=== PATIENT | female | born 1960 | race Caucasian/White ===

== ENCOUNTER 2020-03-27 13:22 | Inpatient (IN) | payer OTHER ==
[2020-03-27] MEDS ORDERED: MAGNESIUM CITRATE 300 ML BOTTLE PO PRN (18:18)
[2020-03-27] MEDS ORDERED: BISMUTH SUBSALICYLATE 524 MG/30 ML UD PO PRN (18:18)
[2020-03-27] MEDS ORDERED: IBUPROFEN 400 MG TABLET (FP) PO PRN (18:18)
[2020-03-27] MEDS ORDERED: MAG HYDROX/AL HYDROX/SIMETH 30 ML UNIT-DOSE CUP PO PRN (18:18)
[2020-03-27] MEDS ORDERED: MAGNESIUM HYDROX 2400MG/30ML ORAL SUSPENSION 30 ML CUP PO PRN (18:18)
[2020-03-27] MEDS ORDERED: chlordiazePOXIDE HCL 25 MG CAPSULE PO PRN (18:18)
[2020-03-27] MEDS ORDERED: MENTHOL/PHENOL 1 EACH UD MM PRN (18:18)
[2020-03-27] MEDS ORDERED: chlordiazePOXIDE HCL 25 MG CAPSULE PO ONE (18:18)
[2020-03-27] MEDS ORDERED: ONDANSETRON *ODT* 4 MG TABLET SL PRN (18:18)
[2020-03-27] MEDS ORDERED: ACETAMINOPHEN 325 MG TABLET (FP) PO PRN ×2 (18:18)
[2020-03-27] MEDS ORDERED: METHOCARBAMOL 500 MG TABLET PO PRN (18:18)
[2020-03-27] MEDS ORDERED: BENZOCAINE 28 GM HEMORRHOIDAL OINTMENT PR PRN (18:23)
[2020-03-27 19:32] VITALS: BMI 29.6
[2020-03-27] MEDS ORDERED: TOLNAFTATE 1% CREAM 15 GM TUBE TP SCH (22:00)
[2020-03-27] MEDS ORDERED: ARTIFICIAL TEARS (POLYVINYL ALCOHOL) OPTH DROPS OU PRN (22:00)
[2020-03-27] MEDS: THIAMINE HCL 100 MG TABLET (FP) PO SCH (22:33)
[2020-03-27] MEDS: chlordiazePOXIDE HCL 25 MG CAPSULE PO SCH (22:36)
[2020-03-27] MEDS: SIMETHICONE 80 MG TAB.CHEW (FP) PO SCH (22:38)
[2020-03-27] MEDS ORDERED: SUVOREXANT 5 MG TABLET PO ONE (23:00)
[2020-03-28] MEDS: chlordiazePOXIDE HCL 25 MG CAPSULE PO SCH ×2 (05:41→10:20)
[2020-03-28] MEDS: PRENATAL VITAMINS W/ FOLIC ACID TABLET (FP) PO SCH (10:20)
[2020-03-28] MEDS: PANTOPRAZOLE 40 MG TABLET PO SCH (10:20)
[2020-03-28 10:29] LABS: HEMATOCRIT 35.8 % (32.4-45.2); MCH 33.3 pg (25.7-33.7); MCHC 33.5 g/dl (32.0-36.0); MEAN CELL VOLUME 99.4 fl (80-96); MEAN PLT VOLUME 10.2 fl (7.5-11.1); PLATELET COUNT 134 K/MM3 (134-434); RDW 12.6 % (11.6-15.6); WHITE BLOOD COUNT 3.7 K/mm3 (4.0-10.0)
[2020-03-28 10:57] LABS: POTASSIUM 3.5 mmol/L (3.5-5.1)
[2020-03-28 11:00] LABS: CALCIUM 8.8 mg/dL (8.5-10.1)
[2020-03-28 11:01] LABS: ALBUMIN 3.4 g/dl (3.4-5.0)
[2020-03-28 11:04] LABS: CREATININE 0.6 mg/dL (0.55-1.3)
[2020-03-28 11:05] LABS: BILIRUBIN,TOTAL 1.8 mg/dL (0.2-1)
[2020-03-28 11:06] LABS: TOT PROT 6.4 g/dl (6.4-8.2)
[2020-03-28] MEDS: SIMETHICONE 80 MG TAB.CHEW (FP) PO SCH ×2 (14:16→22:08)
[2020-03-28] MEDS ORDERED: LORazepam 2 MG TABLET PO PRN (17:00)
[2020-03-28] MEDS: THIAMINE HCL 100 MG TABLET (FP) PO SCH (22:08)
[2020-03-28] MEDS: LORazepam 1 MG TABLET PO PRN (22:25)
[2020-03-28] MEDS: SUVOREXANT 5 MG TABLET PO PRN (23:21)
[2020-03-29] MEDS ORDERED: chlordiazePOXIDE HCL 25 MG CAPSULE PO SCH (05:00)
[2020-03-29] MEDS: LORazepam 1 MG TABLET PO SCH ×4 (05:33→22:12)
[2020-03-29] MEDS: LORazepam 1 MG TABLET PO PRN (09:18)
[2020-03-29] MEDS: SIMETHICONE 80 MG TAB.CHEW (FP) PO SCH ×2 (10:10→22:12)
[2020-03-29] MEDS: PANTOPRAZOLE 40 MG TABLET PO SCH (10:10)
[2020-03-29] MEDS: PRENATAL VITAMINS W/ FOLIC ACID TABLET (FP) PO SCH (10:10)
[2020-03-29] MEDS: FLUoxetine HCL 10 MG TABLET PO SCH (10:10)
[2020-03-29] MEDS: THIAMINE HCL 100 MG TABLET (FP) PO SCH (22:12)
[2020-03-29] MEDS: SUVOREXANT 5 MG TABLET PO PRN (22:14)
[2020-03-30] MEDS ORDERED: chlordiazePOXIDE HCL 10 MG CAPSULE PO PRN
[2020-03-30] MEDS ORDERED: chlordiazePOXIDE HCL 10 MG CAPSULE PO SCH (05:00)
[2020-03-30] MEDS: LORazepam 0.5 MG TABLET PO SCH ×4 (05:40→22:04)
[2020-03-30] MEDS: PANTOPRAZOLE 40 MG TABLET PO SCH (10:07)
[2020-03-30] MEDS: SIMETHICONE 80 MG TAB.CHEW (FP) PO SCH ×2 (10:07→22:05)
[2020-03-30] MEDS: PRENATAL VITAMINS W/ FOLIC ACID TABLET (FP) PO SCH (10:07)
[2020-03-30] MEDS: FLUoxetine HCL 10 MG TABLET PO SCH (10:07)
[2020-03-30 12:14] LABS: ALBUMIN 3.3 g/dl (3.4-5.0)
[2020-03-30 12:17] LABS: BILIRUBIN,DIRECT 0.4 mg/dL (0.0-0.2)
[2020-03-30 12:19] LABS: BILIRUBIN,TOTAL 0.8 mg/dL (0.2-1); TOT PROT 6.4 g/dl (6.4-8.2)
[2020-03-30] MEDS: THIAMINE HCL 100 MG TABLET (FP) PO SCH (22:05)
[2020-03-30] MEDS: SUVOREXANT 5 MG TABLET PO PRN (22:05)
[2020-03-31] MEDS ORDERED: LORazepam 0.5 MG TABLET PO PRN
[2020-03-31] MEDS ORDERED: LORazepam 0.5 MG TABLET PO ONE (05:00)
[2020-03-31] MEDS ORDERED: chlordiazePOXIDE HCL 10 MG CAPSULE PO SCH (05:00)
[2020-03-31 07:09] VITALS: BP 120/67; PULSE 58; TEMP 97.5
[2020-04-01] MEDS ORDERED: chlordiazePOXIDE HCL 10 MG CAPSULE PO ONE (05:00)
== END 2020-03-31 09:04 | disposition home or self-care (01) | DRG 775 ==
LOC: YASAS 13:22 → Y3N 19:22
PROVIDERS: ADMIT Allergy & Immunology; ATTEND Allergy & Immunology
PROC: HZ2ZZZZ Detoxification Services for Substance Abuse Treatment (ICD-10-PCS; principal; 2020-03-27)
DX: F10.230 Alcohol dependence with withdrawal, uncomplicated (principal); F20.9 Schizophrenia, unspecified; F41.9 Anxiety disorder, unspecified; G47.00 Insomnia, unspecified; E53.8 Deficiency of other specified B group vitamins; K74.60 Unspecified cirrhosis of liver; K21.9 Gastro-esophageal reflux disease without esophagitis; K45.8 Other specified abdominal hernia without obstruction or gangrene; K64.4 Residual hemorrhoidal skin tags; R94.31 Abnormal electrocardiogram [ECG] [EKG]; R94.5 Abnormal results of liver function studies; Z98.84 Bariatric surgery status
CPT/HCPCS: 36415; 80053; 80076; 82962; 85027; 86780; 93005; 93010; C9803; U0003

== ENCOUNTER 2020-06-17 10:39 | Inpatient (IN) | payer OTHER ==
[2020-06-17 11:26] VITALS: BMI 36.3
[2020-06-17] MEDS ORDERED: MAGNESIUM CITRATE 300 ML BOTTLE PO PRN (11:58)
[2020-06-17] MEDS ORDERED: MENTHOL/PHENOL 1 EACH UD MM PRN (11:58)
[2020-06-17] MEDS ORDERED: ACETAMINOPHEN 325 MG TABLET (FP) PO PRN ×2 (11:58)
[2020-06-17] MEDS ORDERED: BISMUTH SUBSALICYLATE 524 MG/30 ML UD PO PRN (11:58)
[2020-06-17] MEDS ORDERED: LORazepam 1 MG TABLET PO PRN (11:58)
[2020-06-17] MEDS ORDERED: MAGNESIUM HYDROX 2400MG/30ML ORAL SUSPENSION 30 ML CUP PO PRN (11:58)
[2020-06-17] MEDS ORDERED: METHOCARBAMOL 500 MG TABLET PO PRN (11:58)
[2020-06-17] MEDS ORDERED: IBUPROFEN 400 MG TABLET (FP) PO PRN (11:58)
[2020-06-17] MEDS ORDERED: MAG HYDROX/AL HYDROX/SIMETH 30 ML UNIT-DOSE CUP PO PRN (11:58)
[2020-06-17] MEDS ORDERED: BENZOCAINE 28 GM HEMORRHOIDAL OINTMENT RC PRN (12:02)
[2020-06-17] MEDS: ONDANSETRON *ODT* 4 MG TABLET SL PRN (12:47)
[2020-06-17] MEDS: PRENATAL VITAMINS W/ FOLIC ACID TABLET (FP) PO SCH (12:50)
[2020-06-17 13:41] LABS: ALBUMIN 3.5 g/dl (3.4-5.0); BLOOD UREA NITROGEN 8.3 mg/dL (7-18); CALCIUM 8.6 mg/dL (8.5-10.1); HEMATOCRIT 32.1 % (32.4-45.2); HEMOGLOBIN 10.8 GM/dL (10.7-15.3); MCH 31.9 pg (25.7-33.7); MCHC 33.6 g/dl (32.0-36.0); MEAN CELL VOLUME 94.9 fl (80-96); MEAN PLT VOLUME 9.7 fl (7.5-11.1); PLATELET COUNT 148 K/MM3 (134-434); RBC 3.38 M/mm3 (3.60-5.2); RDW 19.5 % (11.6-15.6); WHITE BLOOD COUNT 5.4 K/mm3 (4.0-10.0)
[2020-06-17 13:45] LABS: CREATININE 0.7 mg/dL (0.55-1.3)
[2020-06-17 13:46] LABS: BILIRUBIN,TOTAL 1.8 mg/dL (0.2-1); TOT PROT 7.3 g/dl (6.4-8.2)
[2020-06-17] MEDS: hydrOXYzine PAMOATE 25 MG CAPSULE (FP) PO SCH ×3 (14:57→22:30)
[2020-06-17] MEDS: LORazepam 2 MG TABLET PO SCH ×2 (17:05→22:29)
[2020-06-17] MEDS ORDERED: SUVOREXANT 10 MG TABLET PO PRN (22:00)
[2020-06-17] MEDS: MELATONIN 5 MG TABLETS PO SCH (22:30)
[2020-06-17] MEDS: THIAMINE HCL 100 MG TABLET (FP) PO SCH (22:31)
[2020-06-18] MEDS: LORazepam 2 MG TABLET PO SCH ×4 (05:54→22:27)
[2020-06-18] MEDS: hydrOXYzine PAMOATE 25 MG CAPSULE (FP) PO SCH ×5 (05:54→22:27)
[2020-06-18] MEDS: PRENATAL VITAMINS W/ FOLIC ACID TABLET (FP) PO SCH (10:19)
[2020-06-18] MEDS: FLUoxetine HCL 20 MG CAPSULE PO SCH (10:19)
[2020-06-18] MEDS: GABAPENTIN 100 MG CAPSULE PO SCH ×2 (14:15→22:27)
[2020-06-18] MEDS: ONDANSETRON *ODT* 4 MG TABLET SL PRN (14:19)
[2020-06-18] MEDS: THIAMINE HCL 100 MG TABLET (FP) PO SCH (22:27)
[2020-06-18] MEDS: MELATONIN 5 MG TABLETS PO SCH (22:28)
[2020-06-19] MEDS: LORazepam 1 MG TABLET PO SCH ×3 (06:01→17:51)
[2020-06-19] MEDS: GABAPENTIN 100 MG CAPSULE PO SCH ×2 (06:05→14:11)
[2020-06-19] MEDS: hydrOXYzine PAMOATE 25 MG CAPSULE (FP) PO SCH ×4 (06:06→17:54)
[2020-06-19] MEDS: PRENATAL VITAMINS W/ FOLIC ACID TABLET (FP) PO SCH (10:17)
[2020-06-19] MEDS: FLUoxetine HCL 20 MG CAPSULE PO SCH (10:17)
[2020-06-19 10:43] LABS: BILIRUBIN,DIRECT 0.6 mg/dL (0.0-0.2)
[2020-06-19 10:45] LABS: BILIRUBIN,TOTAL 1.2 mg/dL (0.2-1); TOT PROT 6.2 g/dl (6.4-8.2)
[2020-06-20] MEDS ORDERED: LORazepam 0.5 MG TABLET PO PRN
[2020-06-20] MEDS: MELATONIN 5 MG TABLETS PO SCH ×2 (00:07→22:36)
[2020-06-20] MEDS: GABAPENTIN 100 MG CAPSULE PO SCH ×4 (00:07→22:36)
[2020-06-20] MEDS: hydrOXYzine PAMOATE 25 MG CAPSULE (FP) PO SCH ×6 (00:08→22:36)
[2020-06-20] MEDS: THIAMINE HCL 100 MG TABLET (FP) PO SCH ×2 (00:08→22:37)
[2020-06-20] MEDS: LORazepam 1 MG TABLET PO SCH (00:08)
[2020-06-20 06:06] LABS: SARS-CoV-2 NAA Not Detected (Not Detected)
[2020-06-20] MEDS: LORazepam 0.5 MG TABLET PO SCH ×4 (07:29→22:36)
[2020-06-20 10:04] LABS: BASO % 0.5 % (0-2.0); EOS % 0.1 % (0-4.5); HEMATOCRIT 27.8 % (32.4-45.2); HEMOGLOBIN 9.3 GM/dL (10.7-15.3); LYMPH % 28.9 % (8-40); MCH 32.4 pg (25.7-33.7); MCHC 33.5 g/dl (32.0-36.0); MEAN CELL VOLUME 96.9 fl (80-96); MEAN PLT VOLUME 10.4 fl (7.5-11.1); MONO % 7.2 % (3.8-10.2); NEUT % 63.3 % (42.8-82.8); PLATELET COUNT 117 K/MM3 (134-434); RBC 2.87 M/mm3 (3.60-5.2); RDW 19.7 % (11.6-15.6); WHITE BLOOD COUNT 5.5 K/mm3 (4.0-10.0)
[2020-06-20 10:11] LABS: BLOOD UREA NITROGEN 7.6 mg/dL (7-18); CALCIUM 8.4 mg/dL (8.5-10.1)
[2020-06-20 10:14] LABS: CREATININE 0.9 mg/dL (0.55-1.3)
[2020-06-20] MEDS: PRENATAL VITAMINS W/ FOLIC ACID TABLET (FP) PO SCH (10:21)
[2020-06-20] MEDS: FLUoxetine HCL 20 MG CAPSULE PO SCH (10:21)
[2020-06-21] MEDS ORDERED: LORazepam 0.5 MG TABLET PO ONE (05:00)
[2020-06-21] MEDS: hydrOXYzine PAMOATE 25 MG CAPSULE (FP) PO SCH ×2 (05:58→10:38)
[2020-06-21] MEDS: GABAPENTIN 100 MG CAPSULE PO SCH (05:58)
[2020-06-21 09:52] VITALS: BP 125/83; PULSE 72; TEMP 97.8
[2020-06-21] MEDS: PRENATAL VITAMINS W/ FOLIC ACID TABLET (FP) PO SCH (10:38)
[2020-06-21] MEDS: FLUoxetine HCL 20 MG CAPSULE PO SCH (10:38)
== END 2020-06-21 10:40 | disposition home or self-care (01) | DRG 775 ==
LOC: YASAS 10:39 → Y6N 12:19
PROVIDERS: ADMIT Allergy & Immunology; ATTEND Allergy & Immunology
PROC: HZ2ZZZZ Detoxification Services for Substance Abuse Treatment (ICD-10-PCS; principal; 2020-06-17)
DX: F10.230 Alcohol dependence with withdrawal, uncomplicated (principal); F10.282 Alcohol dependence with alcohol-induced sleep disorder; F31.9 Bipolar disorder, unspecified; F41.9 Anxiety disorder, unspecified; D51.9 Vitamin B12 deficiency anemia, unspecified; E87.1 Hypo-osmolality and hyponatremia; K70.30 Alcoholic cirrhosis of liver without ascites; K29.70 Gastritis, unspecified, without bleeding; R74.9 Abnormal serum enzyme level, unspecified; K64.4 Residual hemorrhoidal skin tags; K21.9 Gastro-esophageal reflux disease without esophagitis; Z90.49 Acquired absence of other specified parts of digestive tract; Z98.890 Other specified postprocedural states
CPT/HCPCS: 36415; 80048; 80053; 80076; 85025; 85027; 86780; C9803; Q0162; U0003; U0005

== ENCOUNTER 2020-06-19 21:30 | Emergency (ER) | payer OTHER ==
[2020-06-19 22:15] VITALS: TEMP 98.2; BMI 27.0
[2020-06-19] MEDS ORDERED: ONDANSETRON 4 MG/2 ML VIAL IVPUSH ONE (22:23)
[2020-06-19] MEDS ORDERED: FAMOTIDINE 20 MG/50 ML IVPB 20 MG/50 ML MG IVPB ONE ×2 (22:23→22:34)
[2020-06-19] MEDS ORDERED: ACETAMINOPHEN 1000 MG/100 ML VIAL (NON FORMULARY) IVPB ONE (22:23)
[2020-06-19] MEDS ORDERED: LACTATED RINGERS SOLUTION 1000 ML INFUS.BAG IV ONE (22:23)
[2020-06-19] MEDS ORDERED: ACETAMINOPHEN INJECTION 100 ML IVPB ONE (22:34)
[2020-06-19] MEDS ORDERED: ONDANSETRON 4 MG/2 ML VIAL ONE (22:34)
[2020-06-19] MEDS ORDERED: SODIUM CHLORIDE 0.9% 500 ML INFUS.BAG IV ONE (22:57)
[2020-06-19] MEDS ORDERED: MAGNESIUM SULF 50% (8.12 MEQ/2 ML-1 GM VIAL) IVPB ONE (22:58)
[2020-06-19 23:01] LABS: BASO % 0.4 % (0-2.0); EOS % 0.1 % (0-4.5); HEMATOCRIT 31.1 % (32.4-45.2); HEMOGLOBIN 10.5 GM/dL (10.7-15.3); MCH 32.7 pg (25.7-33.7); MCHC 33.7 g/dl (32.0-36.0); MEAN PLT VOLUME 9.7 fl (7.5-11.1); MONO % 5.4 % (3.8-10.2); NEUT % 86.1 % (42.8-82.8); PLATELET COUNT 111 K/MM3 (134-434); RBC 3.21 M/mm3 (3.60-5.2); RDW 19.6 % (11.6-15.6); WHITE BLOOD COUNT 6.5 K/mm3 (4.0-10.0)
[2020-06-19] MEDS ORDERED: MAGNESIUM 1GM/D5W - 1 GM/100 ML IVPB IVPB ONE (23:01)
[2020-06-19 23:07] LABS: INR 1.06 (0.83-1.09)
[2020-06-19 23:24] LABS: ALBUMIN 3.5 g/dl (3.4-5.0); CALCIUM 8.8 mg/dL (8.5-10.1)
[2020-06-19 23:25] LABS: BLOOD UREA NITROGEN 9.8 mg/dL (7-18)
[2020-06-19 23:26] VITALS: BP 103/70; PULSE 80
[2020-06-19 23:28] LABS: CREATININE 1.1 mg/dL (0.55-1.3)
[2020-06-19 23:29] LABS: TOT PROT 7.2 g/dl (6.4-8.2)
[2020-06-19 23:31] LABS: LACTIC ACID 2.6 mmol/L (0.4-2.0)
== END 2020-06-20 04:02 | disposition short-term general hospital (02) ==
LOC: JER 21:30
PROC: 3E033NZ Introduction of Analgesics, Hypnotics, Sedatives into Peripheral Vein, Percutaneous Approach (ICD-10-PCS; principal; 2020-06-19)
PROC: 3E033GC Introduction of Other Therapeutic Substance into Peripheral Vein, Percutaneous Approach (ICD-10-PCS; 2020-06-19)
DX: R10.84 Generalized abdominal pain (principal); R14.1 Gas pain; K56.7 Ileus, unspecified
CPT/HCPCS: 36415; 71045-TC-FY; 74177-TC; 80053; 83605; 83690; 85025; 85610; 85730; 93005; 93010; 99285-25; J0131; Q9967

== ENCOUNTER 2022-11-01 14:58 | Inpatient (IN) | payer OTHER ==
[2022-11-01 15:50] VITALS: BMI 39.0
[2022-11-01] MEDS ORDERED: P-EPHED 60MG/TRIPROLIDI 2.5MG TABLET PO PRN (19:01)
[2022-11-01] MEDS ORDERED: BENZOCAINE/MENTHOL (CHLORASEPTIC ) LOZENGE MM PRN (19:01)
[2022-11-01] MEDS ORDERED: LOPERAMIDE HCL 2 MG CAPSULE PO PRN (19:01)
[2022-11-01] MEDS ORDERED: guaiFENesin 600 MG TABLET.ER (FP) PO PRN (19:01)
[2022-11-01] MEDS ORDERED: hydrOXYzine PAMOATE 25 MG CAPSULE (FP) PO PRN (19:01)
[2022-11-01] MEDS ORDERED: IBUPROFEN 400 MG TABLET (FP) PO PRN (19:01)
[2022-11-01] MEDS ORDERED: MAG HYDROX/AL HYDROX/SIMETH 30 ML UNIT-DOSE CUP PO PRN (19:01)
[2022-11-01] MEDS ORDERED: ACETAMINOPHEN 325 MG TABLET (FP) PO PRN (19:01)
[2022-11-01] MEDS ORDERED: DICYCLOMINE HCL 10 MG CAPSULE PO PRN (19:01)
[2022-11-01] MEDS ORDERED: BENZONATATE 200 MG CAPSULE PO PRN (19:01)
[2022-11-01] MEDS ORDERED: BISMUTH SUBSALICYLATE 524 MG/30 ML PO PRN (19:01)
[2022-11-01] MEDS: diazePAM 5 MG TABLET PO PRN (20:22)
[2022-11-01] MEDS: ONDANSETRON *ODT* 4 MG TABLET SL PRN (20:23)
[2022-11-01] MEDS: THIAMINE HCL 100 MG TABLET (FP) PO SCH (22:46)
[2022-11-01] MEDS: diazePAM 5 MG TABLET PO SCH (22:46)
[2022-11-01] MEDS: MELATONIN 5 MG TABLETS PO SCH (22:46)
[2022-11-02] MEDS: diazePAM 5 MG TABLET PO SCH ×4 (05:19→22:27)
[2022-11-02] MEDS: PRENATAL VITAMINS W/ FOLIC ACID TABLET (FP) PO SCH (10:21)
[2022-11-02 10:39] LABS: HEMATOCRIT 29.9 % (32.4-45.2); HEMOGLOBIN 10.2 GM/dL (10.7-15.3); MCH 31.4 pg (25.7-33.7); MCHC 34.2 g/dl (32.0-36.0); MEAN PLT VOLUME 9.1 fl (7.5-11.1); PLATELET COUNT 101 10^3/uL (134-434); RBC 3.25 M/mm3 (3.60-5.2); RDW 15.2 % (11.6-15.6); WHITE BLOOD COUNT 3.4 K/mm3 (4.0-10.0)
[2022-11-02 11:30] LABS: POTASSIUM 4.1 mmol/L (3.5-5.1)
[2022-11-02 11:33] LABS: ALBUMIN 2.8 g/dl (3.4-5.0); BLOOD UREA NITROGEN 7.7 mg/dL (7-18); CALCIUM 8.4 mg/dL (8.5-10.1)
[2022-11-02 11:36] LABS: CREATININE 0.8 mg/dL (0.55-1.3)
[2022-11-02 11:38] LABS: BILIRUBIN,TOTAL 1.3 mg/dL (0.2-1); TOT PROT 6.1 g/dl (6.4-8.2)
[2022-11-02] MEDS: ONDANSETRON *ODT* 4 MG TABLET SL PRN (15:14)
[2022-11-02] MEDS: IBUPROFEN 600 MG TABLET (FP) PO PRN (15:14)
[2022-11-02] MEDS: MELATONIN 5 MG TABLETS PO SCH (22:26)
[2022-11-02] MEDS: THIAMINE HCL 100 MG TABLET (FP) PO SCH (22:26)
[2022-11-02] MEDS: SUVOREXANT 5 MG TABLET PO PRN (22:26)
[2022-11-03] MEDS: diazePAM 5 MG TABLET PO SCH ×3 (05:53→22:12)
[2022-11-03] MEDS: IBUPROFEN 600 MG TABLET (FP) PO PRN ×2 (10:19→22:16)
[2022-11-03] MEDS: PRENATAL VITAMINS W/ FOLIC ACID TABLET (FP) PO SCH (10:19)
[2022-11-03] MEDS: diazePAM 5 MG TABLET PO PRN ×2 (10:20→18:47)
[2022-11-03] MEDS: SIMETHICONE 80 MG TAB.CHEW (FP) PO PRN ×2 (11:53→18:08)
[2022-11-03] MEDS: ONDANSETRON *ODT* 4 MG TABLET SL PRN (11:57)
[2022-11-03] MEDS: MAGNESIUM HYDROX 2400MG/30ML ORAL SUSPENSION 30 ML CUP PO PRN (13:17)
[2022-11-03] MEDS: POLYETHYLENE GLYCOL (HEALTHYLAX) 3350 17 GM PACKET PO PRN (18:41)
[2022-11-03] MEDS: THIAMINE HCL 100 MG TABLET (FP) PO SCH (22:11)
[2022-11-03] MEDS: MELATONIN 5 MG TABLETS PO SCH (22:11)
[2022-11-03] MEDS: SUVOREXANT 5 MG TABLET PO PRN (22:15)
[2022-11-04] MEDS: diazePAM 5 MG TABLET PO PRN ×2 (01:47→10:06)
[2022-11-04] MEDS: diazePAM 5 MG TABLET PO SCH ×2 (05:20→17:34)
[2022-11-04] MEDS: PRENATAL VITAMINS W/ FOLIC ACID TABLET (FP) PO SCH (10:06)
[2022-11-04] MEDS: MAGNESIUM HYDROX 2400MG/30ML ORAL SUSPENSION 30 ML CUP PO PRN (10:09)
[2022-11-04] MEDS: POLYETHYLENE GLYCOL (HEALTHYLAX) 3350 17 GM PACKET PO PRN (14:32)
[2022-11-04] MEDS ORDERED: SUVOREXANT 10 MG TABLET PO PRN (22:00)
[2022-11-04] MEDS: THIAMINE HCL 100 MG TABLET (FP) PO SCH (22:32)
[2022-11-05] MEDS ORDERED: diazePAM 5 MG TABLET PO ONE (06:00)
[2022-11-05 09:54] VITALS: BP 144/93; PULSE 75; RESP 16; TEMP 97.5
[2022-11-05] MEDS: PRENATAL VITAMINS W/ FOLIC ACID TABLET (FP) PO SCH (10:15)
== END 2022-11-05 10:32 | disposition home or self-care (01) | DRG 775 ==
LOC: YASAS 14:58 → Y3N 19:27
PROVIDERS: ADMIT Allergy & Immunology; ATTEND Surgery
PROC: HZ2ZZZZ Detoxification Services for Substance Abuse Treatment (ICD-10-PCS; principal; 2022-10-31)
DX: F10.230 Alcohol dependence with withdrawal, uncomplicated (principal); F31.9 Bipolar disorder, unspecified; F20.9 Schizophrenia, unspecified; G47.00 Insomnia, unspecified; K21.9 Gastro-esophageal reflux disease without esophagitis; K70.30 Alcoholic cirrhosis of liver without ascites; K64.8 Other hemorrhoids; Z86.59 Personal history of other mental and behavioral disorders
CPT/HCPCS: 36415; 80053; 85027; 86780; 87635; Q0162